=== PATIENT | male | born 1960 | race Caucasian/White ===

== ENCOUNTER 2021-09-11 18:20 | Inpatient (IN) ==
[2021-09-11] MEDS ORDERED: PHARMACY CONSULT - VANCOMYCIN XX SCH (19:00)
[2021-09-11 19:35] LABS: BASOPHILS # (AUTO) 0.1 X10^3/uL (0.0-0.1); EOSINOPHILS # (AUTO) 0.1 x10^3/uL (0.0-0.2); LYMPHOCYTES # (AUTO) 2.4 X10^3/uL (1.3-2.9)
[2021-09-11 19:38] LABS: HEMOGLOBIN 13.8 g/dL (13.5-18.0); MEAN CORPUSCULAR HEMOGLOBIN 33.6 pg (27.0-34.0)
[2021-09-11 19:44] LABS: BASOPHILS % (AUTO) 0.9 % (0.2-1.0); EOSINOPHILS % (AUTO) 1.1 % (0.9-2.9); HEMATOCRIT 39.5 % (42.0-54.0); LYMPHOCYTES % (AUTO) 24.1 % (21.0-51.0); MEAN CORPUSCULAR HGB CONC 34.8 g/dL (33.0-35.0); MEAN CORPUSCULAR VOLUME 96.5 fL (80.0-100.0); MEAN PLATELET VOLUME 7.3 fL (7.4-11.0); MONOCYTES # (AUTO) 0.8 x10^3/uL (0.3-0.8); MONOCYTES % (AUTO) 8.4 % (0.0-13.0); NEUTROPHILS # (AUTO) 6.6 x10^3/uL (2.2-4.8); NEUTROPHILS % (AUTO) 65.5 % (42.0-75.0); RED BLOOD COUNT 4.09 X10^6/uL (4.7-6.0); WHITE BLOOD COUNT 10.1 X10^3/uL (3.6-10.0)
[2021-09-11 19:58] LABS: ALANINE AMINOTRANSFERASE 31 Units/L (12-78); ALBUMIN 2.8 g/dL (3.4-5.0); ALKALINE PHOSPHATASE 113 Units/L (46-116); ASPARTATE AMINO TRANSFERASE 34 Units/L (15-37); BLOOD UREA NITROGEN 31 mg/dL (7-18); CALCIUM 8.6 mg/dL (8.5-10.1); CARBON DIOXIDE 23.7 mmol/L (21-32); CHLORIDE 99 mmol/L (98-107); COR CA(FOR HYPOALB) 9.6 mg/dL (8.5-10.1); COR NA(FOR HYPERGLY) 135 mmol/L (136-145); CREATININE 1.18 mg/dL (0.70-1.30); SODIUM 134 mmol/L (136-145); TOTAL PROTEIN 8.2 g/dL (6.4-8.2); eGFR NON BLACK RACES > 60 (>60)
[2021-09-11 20:31] LABS: PLATELET MORPHOLOGY COMMENT NORMAL (NORMAL)
[2021-09-11] MEDS: NS 1,000 ML IV 1,000 ML IV SCH (22:00)
[2021-09-11] MEDS: CIPRO IV 400 MG PREMIX* 400 MG/200 ML IV.SOLN. IV SCH (22:09)
[2021-09-11 22:30] LABS: CREATININE 1.17 mg/dL (0.70-1.30); VANCOMYCIN,TROUGH 12.4 ug/mL (15-20)
[2021-09-12] MEDS ORDERED: VANCOMYCIN IV *PREMIX 2 G/400 ML BAG 2 G/400 ML PIGGYBACK IV ONE
[2021-09-12 06:48] LABS: BASOPHILS % (AUTO) 0.5 % (0.2-1.0); EOSINOPHILS # (AUTO) 0.2 x10^3/uL (0.0-0.2); EOSINOPHILS % (AUTO) 2.1 % (0.9-2.9); HEMATOCRIT 37.6 % (42.0-54.0); HEMOGLOBIN 13.1 g/dL (13.5-18.0); LYMPHOCYTES # (AUTO) 2.8 X10^3/uL (1.3-2.9); MEAN CORPUSCULAR HEMOGLOBIN 33.8 pg (27.0-34.0); MEAN CORPUSCULAR HGB CONC 34.9 g/dL (33.0-35.0); MEAN CORPUSCULAR VOLUME 97.1 fL (80.0-100.0); MEAN PLATELET VOLUME 7.6 fL (7.4-11.0); MONOCYTES # (AUTO) 1.2 x10^3/uL (0.3-0.8); MONOCYTES % (AUTO) 12.1 % (0.0-13.0); NEUTROPHILS # (AUTO) 5.4 x10^3/uL (2.2-4.8); NEUTROPHILS % (AUTO) 56.3 % (42.0-75.0); RED BLOOD COUNT 3.88 X10^6/uL (4.7-6.0); RED CELL DISTRIBUTION WIDTH 13.8 % (11.6-16.5); WHITE BLOOD COUNT 9.6 X10^3/uL (3.6-10.0)
[2021-09-12 07:10] LABS: ALANINE AMINOTRANSFERASE 33 Units/L (12-78); ALBUMIN 2.7 g/dL (3.4-5.0); ALKALINE PHOSPHATASE 116 Units/L (46-116); ASPARTATE AMINO TRANSFERASE 37 Units/L (15-37); BLOOD UREA NITROGEN 30 mg/dL (7-18); CARBON DIOXIDE 24.9 mmol/L (21-32); CHLORIDE 101 mmol/L (98-107); CREATININE 1.05 mg/dL (0.70-1.30); SODIUM 136 mmol/L (136-145); TOTAL PROTEIN 7.1 g/dL (6.4-8.2); eGFR NON BLACK RACES > 60 (>60)
[2021-09-12 07:39] LABS: BAND NEUTROPHILS % 4 % (0-10); PLATELET MORPHOLOGY COMMENT NORMAL (NORMAL)
[2021-09-12] MEDS: NS 1,000 ML IV 1,000 ML IV SCH ×2 (08:25→20:36)
[2021-09-12] MEDS: VANCOMYCIN IV *PREMIX 1 G/200 ML BAG 1 G/200 ML PIGGYBACK IV SCH ×3 (09:16→21:01)
[2021-09-12] MEDS: CIPRO IV 400 MG PREMIX* 400 MG/200 ML IV.SOLN. IV SCH ×2 (09:16→22:15)
[2021-09-12] MEDS: LOVENOX INJ 40 MG SYR SC SCH (09:17)
[2021-09-12] MEDS ORDERED: NAPROSYN PO PRN (10:09)
--- NOTE | 2021-09-12 10:09 | DR.H&P ---
H&P - History & Physical for Day of: H&P Date: 09/11/21 - Chief Complaint Chief Complaint: LEFT LOWER EXTREMITY REDNESS AND EDEMA - History of Present Illness History of Present Illness: IS A 60 YEAR OLD PATIENT OF OURS WHO WAS BEEN FOLLOWED IN THE OFFICE FOR THE PAST TWO WEEKS FOR TREATMENT OF LEFT LOWER EXTREMITY CELLULITIS. HE WAS INITIALLY TREATED WITH BACTRIM AT HOME, BUT HAS BEEN COMING TO THE HOSPTIAL FOR OUTPATIENT ANTIBIOTICS SINCE 09/07/21. HE HAS BEEN RECEIVING VANCOMYCIN IV AND LEVAQUIN IV. HE DENIES SIGNIFICANT IMPROVEMENT IN SYMPTOMS DESPITE COMPLIANCE WITH MEDICATIONS. DECISION WAS MADE TO ADMIT PATIENT FOR AGGRESSIVE ANTIBIOTIC THERAPY. ON ARRIVAL TO THE HOSPITAL, VITALS WERE 99.0-69-20-99%-120/63. LABS WERE OBTAINED. ABNORMAL LAB VALUES INCLUDE THE FOLLOWING: WBC 10.1, RBC 4.09, HGB 39.5, SODIUM 134, BUN 31, GLUCOSE 133, CRP 100.30, ALBUMIN 2.8, GLOBULIN 5.4. BLOOD CULTURES WERE SET UP. HE WAS STARTED ON NORMAL SALINE AT 75 ML/HR, CIPRO 400MG IV Q12H, VANCOMYCIN 1G IV Q8H, TORADOL 30MG IV Q6H PRN. WE WILL REVIEW HIS HOME MEDICATIONS AND RESUME APPROPRIATE. OTHERWISE, WE PLAN TO FOLLOW UP WITH AM LABS AND CONTINUE TO MONITOR. TIME SPENT ON CLINICAL ASSESSMENT, REVIEWING LABS AND IMAGING, DECISION MAKING, AND DOCUMENTATION GREATER THAN 75 MINUTES. - Past Medical History Past Medical History: Arthritis, Gout, Hypertension Additional Medical History: CARDIAC ARRHYTHMIA - Past Surgical History Surgical History: No History - Family History Family Medical History: Hypertension - Social History Does patient currently use any type of tobacco product: No Have you used tobacco products in the last 12 months: No Alcohol Use: None Drug Use: None - Medications Home Medications: No Known Drug Allergies Allergy (Verified 09/11/21 21:24) CONTINUE taking the following medications allopurinol 300 mg PO DAILY 09/11/21 [History] digoxin 250 mcg PO DAILY 09/11/21 [History] naproxen 500 mg PO BID PRN 09/11/21 [History] sulfamethoxazole-trimethoprim 1 tab PO Q12H 09/11/21 [History] tramadol 100 mg PO QID PRN 09/11/21 [History] valsartan-hydrochlorothiazide 1 tab PO DAILY 09/11/21 [History] - Review of Systems Constitutional: No Symptoms Reported Eyes: No Symptoms Reported ENT: No Symptoms Reported Respiratory: No Symptoms Reported Cardiovascular: Edema (LLE NON-PITTING EDEMA ) Gastrointestinal: No Symptoms Reported Genitourinary: No Symptoms Reported Musculoskeletal: Leg Pain (LEFT LEG ) Skin: Other (LEFT LEG ERYTHEMA ) Neurological: No Symptoms Reported - Physical Exam Vital Signs: Temperature 98.5 F Pulse Rate [Right] 62 Respiratory Rate 20 Blood Pressure [Right Arm] 128/62 O2 Sat by Pulse Oximetry 94 Oriented: Normal Eyes: Normal Ear: Normal Nose: Normal Throat: Normal Respiratory: Diminished Throughout Cardiovascular: Irregular, Edema (LLE NON-PITTING EDEMA ) Auscultation: Bowel Sounds: Normal Palpation: Normal Tenderness: Normal Skin: Red (LEFT LOWER EXTREMITY ), Tender, Hot Musculoskeletal: Left, Foot, Swelling, Tender Psychiatric: Normal Mood Description: Calm Affect: Normal Speech Pattern: Clear - Assessment/Plan (1) Cellulitis of left lower extremity Status: Acute Plan: ADMIT, NORMAL SALINE AT 75 ML/HR, CIPRO 400MG IV Q12H, VANCOMYCIN 1G IV Q8H, TORADOL 30MG IV Q6H PRN, CONTINUE HOME MEDS (2) HTN (hypertension) Qualifiers: Hypertension type: primary hypertension Qualified Code(s): I10 - Essential (primary) hypertension Status: Chronic - Allergies Allergies/Adverse Reactions: Allergies Allergy/AdvReac Type Severity Reaction Status Date / Time No Known Drug Allergies Allergy Verified 09/11/21 21:24
[2021-09-12] MEDS ORDERED: VALSARTAN HYDROCHLOROTHIAZIDE PO SCH (10:15)
[2021-09-12] MEDS: ZYLOPRIM PO SCH (10:39)
[2021-09-12] MEDS: LANOXIN PO SCH (10:39)
[2021-09-12] MEDS: HYDROCHLOROTHIAZIDE 25 MG TAB PO SCH (10:42)
[2021-09-12] MEDS: DIOVAN TAB 160 MG PO SCH (10:42)
[2021-09-12 12:26] VITALS: BMI 52.0
[2021-09-12] MEDS: ULTRAM PO PRN ×2 (14:04→20:52)
[2021-09-12] MEDS: ZOFRAN INJ 4 MG VIAL IVP PRN ×2 (14:05→20:53)
[2021-09-13] MEDS ORDERED: PHARMACY COMMENT IV NR (05:30)
[2021-09-13] MEDS: VANCOMYCIN IV *PREMIX 1 G/200 ML BAG 1 G/200 ML PIGGYBACK IV SCH ×4 (05:35→22:25)
[2021-09-13 06:55] LABS: BASOPHILS % (AUTO) 0.4 % (0.2-1.0); EOSINOPHILS # (AUTO) 0.2 x10^3/uL (0.0-0.2); EOSINOPHILS % (AUTO) 1.9 % (0.9-2.9); HEMATOCRIT 38.1 % (42.0-54.0); HEMOGLOBIN 13.5 g/dL (13.5-18.0); LYMPHOCYTES # (AUTO) 2.3 X10^3/uL (1.3-2.9); MEAN CORPUSCULAR HGB CONC 35.4 g/dL (33.0-35.0); MEAN CORPUSCULAR VOLUME 95.9 fL (80.0-100.0); MEAN PLATELET VOLUME 7.2 fL (7.4-11.0); MONOCYTES % (AUTO) 11.7 % (0.0-13.0); RED BLOOD COUNT 3.98 X10^6/uL (4.7-6.0); RED CELL DISTRIBUTION WIDTH 13.5 % (11.6-16.5); WHITE BLOOD COUNT 8.5 X10^3/uL (3.6-10.0)
[2021-09-13 07:17] LABS: ALANINE AMINOTRANSFERASE 31 Units/L (12-78); ALBUMIN 2.5 g/dL (3.4-5.0); ALKALINE PHOSPHATASE 100 Units/L (46-116); ASPARTATE AMINO TRANSFERASE 34 Units/L (15-37); BLOOD UREA NITROGEN 22 mg/dL (7-18); CALCIUM 8.5 mg/dL (8.5-10.1); CARBON DIOXIDE 24.8 mmol/L (21-32); CHLORIDE 101 mmol/L (98-107); COR CA(FOR HYPOALB) 9.7 mg/dL (8.5-10.1); SODIUM 136 mmol/L (136-145); TOTAL PROTEIN 7.5 g/dL (6.4-8.2); eGFR NON BLACK RACES > 60 (>60)
[2021-09-13 07:52] LABS: METAMYELOCYTES % 1; MYELOCYTES % 1; PLATELET MORPHOLOGY COMMENT NORMAL (NORMAL)
--- NOTE | 2021-09-13 10:45 | PCM.PROG ---
Progress Note - Progress Note for Day of Date of Exam: 09/13/21 - Subjective Subjective: WAS ADMITTED FOR TREATMENT OF LEFT LOWER EXTREMITY CELLULITIS, FAILED OUTPATIENT TREATMENT. TODAY, HE IS ALERT AND ORIENTED, LYING IN BED ON MORNING ROUNDS. HE COMPLAINS OF INCREASE OF TENDERNESS TO THE LEFT LEG TODAY. ON EXAMINATION, HEART IS REGULAR IN RATE AND RHYTHM. BILATERAL LUNGS CLEAR TO AUSCULTATION. ABDOMEN IS OBESE, SOFT, AND NON-TENDER WITH NORMAL BOWEL SOUNDS NOTED IN ALL QUADRANTS. LLE CONTINUES WITH MILD ERYTHEMA, IMPROVED SINCE ADMISSION. 1+ EDEMA NOTED TO LLE. HIS VITALS THIS MORNING ARE: 98.6-73-20-98%-151/66. LABS WERE OBTAINED. ABNORMAL LAB VALUES INCLUDE THE FOLLOWING: RBC 3.98, HCT 38.1, BUN 22, ALBUMIN 2.5, GLOBULIN 5.0. BLOOD CULTURES ARE PENDING. HE IS CURRENTLY RECEIVING: NORMAL SALINE AT 75 ML/HR, CIPRO 400MG IV Q12H, VANCOMYCIN 1G IV Q8H, TORADOL 30MG IV Q6H PRN. HIS HOME MEDICATIONS OF ALLOPURINOL, LANOXIN, HCTZ, NAPROSYN, ULTRAM, AND DIOVAN WERE RESUMED. WE WILL CONTINUE WITH CURRENT PLAN OF CARE TODAY. OTHERWISE, WE PLAN TO FOLLOW UP WITH AM LABS AND CONTINUE TO MONITOR. TIME SPENT ON CLINICAL ASSESSMENT, REVIEWING LABS AND IMAGING, DECISION MAKING, AND DOCUMENTATION GREATER THAN 45 MINUTES. - Past Medical Family Social History Past Med/Fam/Surg Hx: No changes since H&P Allergies: Allergies No Known Drug Allergies Allergy (Verified 09/11/21 21:24) - Review of Systems ROS: No change since H&P - Vital Signs and I&O's Vital Signs: Temperature 98.6 F Pulse Rate [Right] 73 Pulse Rate 72 Respiratory Rate 20 Blood Pressure [Right Arm] 151/66 O2 Sat by Pulse Oximetry 98 Intake and Output: Intake & Output 09/10/21 09/11/21 09/12/21 09/13/21 11:59 11:59 11:59 11:59 Intake Total 1751 / 1751 4176 / 4176 Balance 1751 / 1751 4176 / 4176 - Physical Exam Oriented: Normal Eyes: Normal Ear: Normal Nose: Normal Throat: Normal Respiratory: Generalized, Diminished Cardiovascular: Irregular, Edema (LLE 1+ PITTING EDEMA ) Auscultation: Bowel Sounds: Normal Palpation: Normal Tenderness: Normal Skin: Red (LEFT LOWER EXTREMITY ), Tender, Hot Musculoskeletal: Left, Foot, Swelling, Tender Psychiatric: Normal Mood Description: Calm Affect: Normal Speech Pattern: Clear, Appropriate - Laboratory and Diagnostics Result Diagrams: 09/13/21 06:34 09/13/21 06:34 Labs: Laboratory WBC 8.5 X10^3/uL (3.6-10.0) 09/13/21 06:34 RBC 3.98 X10^6/uL (4.7-6.0) L 09/13/21 06:34 Hgb 13.5 g/dL (13.5-18.0) 09/13/21 06:34 Hct 38.1 % (42.0-54.0) L 09/13/21 06:34 MCV 95.9 fL (80.0-100.0) 09/13/21 06:34 MCH 34.0 pg (27.0-34.0) 09/13/21 06:34 MCHC 35.4 g/dL (33.0-35.0) H 09/13/21 06:34 RDW 13.5 % (11.6-16.5) 09/13/21 06:34 Plt Count 296 X10^3/uL (150.0-450.0) 09/13/21 06:34 Plt Count Comment Adequate (ADEQUATE) 09/13/21 06:34 MPV 7.2 fL (7.4-11.0) L 09/13/21 06:34 Neut % (Auto) 59.0 % (42.0-75.0) 09/13/21 06:34 Lymph % (Auto) 27.0 % (21.0-51.0) 09/13/21 06:34 [place] % (Auto) 11.7 % (0.0-13.0) 09/13/21 06:34 Eos % (Auto) 1.9 % (0.9-2.9) 09/13/21 06:34 Baso % (Auto) 0.4 % (0.2-1.0) 09/13/21 06:34 Neut # (Auto) 5.0 x10^3/uL (2.2-4.8) H 09/13/21 06:34 Lymph # (Auto) 2.3 X10^3/uL (1.3-2.9) 09/13/21 06:34 [place] # (Auto) 1.0 x10^3/uL (0.3-0.8) H 09/13/21 06:34 Eos # (Auto) 0.2 x10^3/uL (0.0-0.2) 09/13/21 06:34 Baso # (Auto) 0.0 X10^3/uL (0.0-0.1) 09/13/21 06:34 Absolute Nucleated RBC 0.0 /100WBC 09/13/21 06:34 Total Counted 100 09/13/21 06:34 Neutrophils % (Manual) 61 % (39-76) 09/13/21 06:34 Band Neutrophils % 4 % (0-10) 09/12/21 05:42 Lymphocytes % (Manual) 29 % (13-43) 09/13/21 06:34 Monocytes % (Manual) 7 % (4-9) 09/13/21 06:34 Eosinophils % (Manual) 1 % (0-6) 09/13/21 06:34 Metamyelocytes % 1 09/13/21 06:34 Myelocytes % 1 09/13/21 06:34 Plt Morphology Comment Normal (NORMAL) 09/13/21 06:34 RBC Morphology Normal (NORMAL) 09/13/21 06:34 Sodium 136 mmol/L (136-145) 09/13/21 06:34 Corrected Sodium TNP 09/13/21 06:34 Potassium 4.5 mmol/L (3.5-5.1) 09/13/21 06:34 Chloride 101 mmol/L (98-107) 09/13/21 06:34 Carbon Dioxide 24.8 mmol/L (21-32) 09/13/21 06:34 BUN 22 mg/dL (7-18) H 09/13/21 06:34 Creatinine 1.10 mg/dL (0.70-1.30) 09/13/21 06:34 Est GFR (MDRD) Af Amer > 60 (>60) 09/13/21 06:34 Est GFR (MDRD) Non-Af > 60 (>60) 09/13/21 06:34 Glucose 99 mg/dL (65-99) 09/13/21 06:34 POC Glucose (mg/dL) 101 mg/dL (65-99) H 09/13/21 05:26 Calcium 8.5 mg/dL (8.5-10.1) 09/13/21 06:34 Corrected Calcium 9.7 mg/dL (8.5-10.1) 09/13/21 06:34 Total Bilirubin 0.50 mg/dL (0.2-1.0) 09/13/21 06:34 AST 34 Units/L (15-37) 09/13/21 06:34 ALT 31 Units/L (12-78) 09/13/21 06:34 Alkaline Phosphatase 100 Units/L (46-116) 09/13/21 06:34 C-Reactive Protein 100.30 mg/L (0-3.0) H 09/11/21 19:15 Total Protein 7.5 g/dL (6.4-8.2) 09/13/21 06:34 Albumin 2.5 g/dL (3.4-5.0) L 09/13/21 06:34 Globulin 5.0 g/dL (2.5-4.5) H 09/13/21 06:34 Albumin/Globulin Ratio 0.5 Ratio (1.1-2.1) L 09/13/21 06:34 Vancomycin Trough 12.4 ug/mL (15-20) L 09/11/21 19:05 Random Vancomycin 15.6 ug/mL 09/13/21 06:34 SARS CoV-2 RNA Rapid MILDRED Negative (NEGATIVE) 09/11/21 19:09 - Plan (1) Cellulitis of left lower extremity Status: Acute Plan: NORMAL SALINE AT 75 ML/HR, CIPRO 400MG IV Q12H, VANCOMYCIN 1G IV Q8H, TORADOL 30MG IV Q6H PRN, CONTINUE HOME MEDS (2) HTN (hypertension) Status: Chronic Qualifiers: Hypertension type: primary hypertension Qualified Code(s): I10 - Essential (primary) hypertension
[2021-09-13] MEDS: DIOVAN TAB 160 MG PO SCH (11:08)
[2021-09-13] MEDS: HYDROCHLOROTHIAZIDE 25 MG TAB PO SCH (11:09)
[2021-09-13] MEDS: ZYLOPRIM PO SCH (11:10)
[2021-09-13] MEDS: LOVENOX INJ 40 MG SYR SC SCH (11:10)
[2021-09-13] MEDS: CIPRO IV 400 MG PREMIX* 400 MG/200 ML IV.SOLN. IV SCH ×2 (11:11→21:04)
[2021-09-13] MEDS: NS 1,000 ML IV 1,000 ML IV SCH ×3 (11:12→22:45)
[2021-09-13] MEDS: LANOXIN PO SCH (11:38)
[2021-09-13] MEDS: TORADOL 30 MG VIAL IVP PRN ×2 (12:24→20:46)
[2021-09-14] MEDS: VANCOMYCIN IV *PREMIX 1 G/200 ML BAG 1 G/200 ML PIGGYBACK IV SCH ×2 (05:13→14:44)
[2021-09-14 06:09] LABS: BASOPHILS % (AUTO) 0.5 % (0.2-1.0); EOSINOPHILS # (AUTO) 0.2 x10^3/uL (0.0-0.2); EOSINOPHILS % (AUTO) 2.2 % (0.9-2.9); HEMATOCRIT 38.7 % (42.0-54.0); HEMOGLOBIN 13.4 g/dL (13.5-18.0); LYMPHOCYTES # (AUTO) 2.5 X10^3/uL (1.3-2.9); LYMPHOCYTES % (AUTO) 28.5 % (21.0-51.0); MEAN CORPUSCULAR HEMOGLOBIN 33.1 pg (27.0-34.0); MEAN CORPUSCULAR HGB CONC 34.7 g/dL (33.0-35.0); MEAN CORPUSCULAR VOLUME 95.5 fL (80.0-100.0); MEAN PLATELET VOLUME 7.4 fL (7.4-11.0); MONOCYTES % (AUTO) 11.6 % (0.0-13.0); NEUTROPHILS % (AUTO) 57.2 % (42.0-75.0); RED BLOOD COUNT 4.06 X10^6/uL (4.7-6.0); RED CELL DISTRIBUTION WIDTH 13.8 % (11.6-16.5); WHITE BLOOD COUNT 8.7 X10^3/uL (3.6-10.0)
[2021-09-14 06:18] LABS: ALANINE AMINOTRANSFERASE 30 Units/L (12-78); ALBUMIN 2.5 g/dL (3.4-5.0); ALKALINE PHOSPHATASE 101 Units/L (46-116); ASPARTATE AMINO TRANSFERASE 31 Units/L (15-37); BLOOD UREA NITROGEN 24 mg/dL (7-18); CALCIUM 8.6 mg/dL (8.5-10.1); CARBON DIOXIDE 24.7 mmol/L (21-32); CHLORIDE 103 mmol/L (98-107); COR CA(FOR HYPOALB) 9.8 mg/dL (8.5-10.1); CREATININE 1.14 mg/dL (0.70-1.30); SODIUM 137 mmol/L (136-145); TOTAL PROTEIN 7.6 g/dL (6.4-8.2); eGFR NON BLACK RACES > 60 (>60)
[2021-09-14 07:02] LABS: BAND NEUTROPHILS % 3 % (0-10); PLATELET MORPHOLOGY COMMENT NORMAL (NORMAL)
[2021-09-14] MEDS: DIOVAN TAB 160 MG PO SCH (09:38)
[2021-09-14] MEDS: HYDROCHLOROTHIAZIDE 25 MG TAB PO SCH (09:38)
[2021-09-14] MEDS: ZYLOPRIM PO SCH (09:40)
[2021-09-14] MEDS: LANOXIN PO SCH (09:41)
[2021-09-14] MEDS: TORADOL 30 MG VIAL IVP PRN (09:41)
[2021-09-14] MEDS: ZOFRAN INJ 4 MG VIAL IVP PRN ×2 (09:42→14:44)
[2021-09-14] MEDS: LOVENOX INJ 40 MG SYR SC SCH (09:49)
[2021-09-14] MEDS: CIPRO IV 400 MG PREMIX* 400 MG/200 ML IV.SOLN. IV SCH (10:04)
--- NOTE | 2021-09-14 13:10 | RAD ---
HISTORYInjurySTUDYLeft lower leg four viewsCOMPARISONNoneFINDINGSNo evidence for acute fracture or other recent osseous injury. Nonacute fragmentation medial malleolus possibly old trauma. Diffuse soft tissue swelling of the lower leg with extensive subcutaneous calcifications.IMPRESSIONNo acute osseous injury demonstrated.Electronically signed by: XAVIER CLEMENTS (Sep 14, 2021 13:09:29)
[2021-09-14] MEDS: NS 1,000 ML IV 1,000 ML IV SCH (13:34)
[2021-09-14] MEDS ORDERED: D5W IV NR (15:00)
[2021-09-14] MEDS ORDERED: [UNRECOGNIZED DRUG - OTHER] IV NR (15:00)
[2021-09-14 20:02] VITALS: BP 152/67
== END 2021-09-14 21:10 | disposition home or self-care (01) | DRG 603 ==
LOC: MED/SURG 18:31
PROVIDERS: ADMIT Internal Medicine; ATTEND Internal Medicine
DX: M79.605 Pain in left leg; Z20.822 Contact with and (suspected) exposure to COVID-19; L03.116 Cellulitis of left lower limb; I10 Essential (primary) hypertension